=== PATIENT | male | born 1945 | race Caucasian/White ===

== ENCOUNTER 2020-12-19 12:06 | Outpatient (RCR) | payer MEDICARE, SELFPAY ==
[2020-12-14 08:48] VITALS: BMI 28.5
== END 2020-12-19 23:59 ==
LOC: IMMUN 12:06
PROVIDERS: Visit Provider Family Medicine
DX: Z23 Encounter for immunization (principal)
CPT/HCPCS: 0011A; 0012A; 91301

== ENCOUNTER → 2020-12-27 06:46 | Outpatient (CLI) | payer MEDICARE, SELFPAY ==
[2020-12-14 08:48] VITALS: BMI 28.5
--- NOTE | 2020-12-27 09:03 | STRESSREP_ITS ---
Stress Test Report Exercise myocardial perfusion stress test. 75-year-old male with a history of coronary artery bypass surgery. Medications amlodipine, baby aspirin, rosuvastatin, isosorbide, lisinopril, metoprolol. Stress protocol: Resting EKG demonstrates normal sinus rhythm with a rate of 57 bpm normal intervals are noted. Resting blood pressure is 120/70 mmHg. The patient exercised according to the regular Jitendra protocol for a total duration of 10 minutes and 30 seconds. Patient completed 1 minute and 30 seconds into stage IV of the Jitendra protocol. The maximum heart rate attained was 1 and 36 bpm which was 95% of max impacted heart rate the maximum workload was 12.5 metabolic equivalents. At rest there were no ST or T wave changes noted to suggest ischemia at peak exercise there was upsloping ST changes only noted which did not meet the criteria for ischemia. No clinical angina noted. Occasional premature ventricular complexes noted. The peak blood pressure was 178/68 mmHg. The test was terminated due to the target heart rate being achieved. The patient did experience throat discomfort at peak exercise which subsided on disc ontinuation of the exercise. Myocardial perfusion protocol. 12.0 mCi of technetium 99m sestamibi was injected at rest. The patient exercised according to regular Jitendra protocol for 10-1/2 minutes and at peak exercise 35.0 mCi of technetium 99m sestamibi was injected stress images were obtained stress and rest images were reconstructed and compared in the short axis vertical long horizontal long axis. Gated images were also obtained Perfusion SPECT analysis: Review of the stress images demonstrate normal uptake of tracer in all areas of the myocardium the resting images similar demonstrate normal uptake of tracer noted in all areas of the myocardium. No obvious areas of reversibility are noted suggest ischemia. No previous infarct is noted. Gated SPECT analysis: The gated ejection fraction is noted to be 61%. Conclusion: Exercise myocardial perfusion stress test with no imaging evidence of ischemia. No EKG criteria for ischemia noted. Throat discomfort noted with exercise which could be an anginal equivalent. This is noted at a high metabolic workload.
== END ==
PROVIDERS: Referring Provider Internal Medicine Cardiovascular Disease; Visit Provider Internal Medicine Cardiovascular Disease
DX: I20.8 Other forms of angina pectoris (principal)
CPT/HCPCS: 78452; 93017; 93306; A9500; Q9957; A4216; C8929

== ENCOUNTER 2021-01-23 06:47 | Day surgery (SDC) | payer MEDICARE, SELFPAY ==
[2020-12-14 08:48] VITALS: BMI 28.5
--- NOTE | 2021-01-18 10:55 | RAD_ITS ---
INDICATION: chest pain EXAMINATION/TECHNIQUE: X-RAY - XR Chest 2 Views COMPARISON: None. FINDINGS: Median sternotomy wires and mediastinal clips present. Chronic lung changes. No acute findings. Tortuous and calcified thoracic aorta. The heart is not enlarged. No pleural effusion or pneumothorax. Senescent changes of the bones. RAD/Chest PA and Lateral IMPRESSION: No acute radiographic abnormalities. Chronic lung changes. Electronically Signed: Asher Koenig MD at 19:26 EDT Tel , Service support ,
[2021-01-18 11:35] LABS: Absolute Lymphocyte Count 1.02 X10^3/uL (0.83-4.51); Absolute Neutrophil Count 2.4 X10^3/uL (2.0-7.7); Basophil# 0.06 X10^3/uL; Basophil% 1.3 % (0-1); Eosinophil# 0.36 X10^3/uL; Eosinophils% 7.9 % (0-5); Hematocrit 46.4 % (40-54); Hemoglobin 15.9 g/dL (13.0-16.5); Lymphocyte # 1.02 X10^3/ul (4.0); Lymphocyte % 22.3 % (19-41); Mean Corp Hgb Conc 34.3 g/dL (32-36); Mean Corpuscular Hgb 32.9 pg (27.0-32.0); Mean Corpuscular Volume 95.9 fL (80-94); Monocyte# 0.76 X10^3/uL; Monocyte% 16.6 % (0-10); NRBC Flagged by Analyzer 0 % (0-5); Neutrophil # 2.36 X10^3/uL (2.7-7.7); Neutrophil % 51.5 % (47-70); Platelet Count 152 K/mm3 (150-450); RBC Distribution Width CV 12.2 % (11.6-14.6); RBC Distribution Width SD 42.9 fl (35.1-43.9); Red Blood Count 4.84 M/mm3 (4.6-6.2); White Blood Count 4.6 K/mm3 (4.4-11.0)
[2021-01-18 12:23] LABS: Anion Gap 6 (5-15); BUN 16 mg/dL (7-18); BUN/Creat Ratio 16.9 RATIO (10-20); Calcium,Total 8.9 mg/dL (8.5-10.1); Chloride 105 mmol/L (98-107); Creatinine, Serum 0.95 mg/dL (0.70-1.30); EST Glomerular Filtration Rate 82 mL/min (>60); Est Glom Filt Rate - Afr Amer 99 mL/min (>60); Glucose 92 mg/dL (74-106); Sodium Level 140 mmol/L (136-145)
[2021-01-22 07:43] VITALS: BMI 28.5
--- NOTE | 2021-01-23 08:38 | HP.PCM_ITS ---
Problem List (1) Exertional angina Status: Acute (2) Atherosclerotic heart disease of [place] coronary artery without angina pectoris Status: Chronic (3) H/O coronary artery bypass surgery Status: Resolved Comment: CABG x 3 ACUNA-LAD, Free YOGI-LCx, SVG-D1 09/23/2000 (4) Essential (primary) hypertension Status: Chronic (5) Hyperlipidemia Status: Chronic Qualifiers: History and Physical Date of Admission: 01/23/21 History of Present Illness This is a 75-year-old gentleman who presents here today for a diagnostic heart catheterization. He has a history of coronary artery disease with bypass surgery in 1999. He had an ACUNA to the diagonal, SVG to the obtuse marginal, right internal mammary to the diagonal. Heart catheterization in 2007 had demonstrated patency of all vessels. He was in our office in November and had noted increased chest discomfort that was worse with exertion over the last month. He underwent a stress test which was negative for ischemia however patient had throat discomfort during exercise and this was of concern for an anginal equivalent. Allergies atorvastatin [From Lipitor] Adverse Reaction (Intermediate, Verified 12/14/20 08:49) Myalgias PFSH Medical History Atherosclerotic heart disease of [place] coronary artery without angina pectoris (Chronic) Essential (primary) hypertension (Chronic) Hyperlipidemia (Chronic) GERD (gastroesophageal reflux disease) (Chronic) Surgical History H/O coronary artery bypass surgery (Resolved 09/23/00) History of left heart catheterization (Chronic 11/19/07) Family History Father , Age 87 CAD (coronary artery disease) Hx of CABG Mother , Unknown cause No problems noted. Social History Smoking Status: Former smoker ROS Const Const: Negative for fatigue, weakness, headache(s), frequent falls, difficulty sleeping or excessive sweating Eyes Eyes: Negative for loss of peripheral vision, transient loss of vision, blurry vision, double vision or tunnel vision ENT ENT: Negative for headache(s), dizziness, Nosebleed/epistaxis or balance problems Cardio Chest Pain: Yes (Throat discomfort much better with imdur. New left chest pain) Frequency: monthly Character: tightness Onset: exercise Location: left chest Duration: minutes, hours Palpitations: No Edema: None Muscle aches with walking: None Resp Respiratory: Negative for SOB with activity, SOB at rest, SOB orthopnea\SOB lying down, Cough or paroxysmal nocturnal dyspnea GI GI: Negative nausea, vomiting, heartburn or black,tarry stools : Negative for hematuria Musc Musc: Negative for muscle aches/ myalgia, muscle weakness, joint pain or balance problems Skin Skin: Negative non-healing lesions, rash or unusual bruising Neuro Neuro: Negative for dizziness, lightheadedness, near syncope, syncope, orthostatic symptoms, frequent falls, headache(s), weakness, blurry vision, double vision or lack of coordination Ayden Hematologic/Lymphatic: Negative for easy bleeding or easy bruising Endo Endo: Negative for fatigue, excessive sweating or increased thirst/drinking Psych Psych: Negative for anxiety or depression Allergy Allergy/Immunology: Negative for hives, Negative for rash Cardiology Exam Const Appearance: cooperative, healthy appearing, no acute distress, well developed and well groomed Nutritional Appearance: average body habitus and well nourished Orientation: alert, awake and oriented x3 Head Head: normal to inspection, normocephalic and atraumatic Ears: hearing grossly normal bilaterally and external ears normal Nose: external nose normal, nares normal, nasal mucous membranes and turbinates normal, septum normal, no nasal discharge Face and Sinus: face symmetric Mouth: oral mucosae normal, tongue normal, oropharynx normal and moist mucous membranes Teeth and gingiva: dentition normal Throat: posterior oropharynx normal, tonsils normal and uvula midline Eyes General: appearance normal, both eyes and all related structures Eyelids: eyelids normal Conjunctivae: conjunctivae normal Pupils: PERRL, normal by confrontation and accommodation normal EOM: EOM intact bilaterally Neck Neck: normal visual inspection, trachea midline and no JVD JVD: +5 Carotids: normal carotid upstroke and bounding pulses Chest Chest inspection: normal inspection of the chest, symmetric chest movement and normal respiratory effort Auscultation: Bilateral: Clear to Auscultation Cardio Palpation: normal PMI Rate: regular rate Rhythm: regular rhythm Heart sounds: S1 normal, S2 normal and normal, physiologic split S2; negative rub, gallop or murmur GI GI: normal to inspection, soft, no hepatosplenomegaly and bowel sounds present Neuro General: alert, awake, oriented x3, gait normal, moves all extremities and no focal sensory deficit Skin Skin: no rashes or lesions noted Extremities Pulses: Normal: Right Femoral Pulse, Left Femoral Pulse, Right Dorsalis Pedis Pulse, Left Dorsalis Pedis Pulse, Right Posterior Tibial Pulse, Left Posterior Tibial Pulse, Right Radial Pulse, Left Radial Pulse Lower Extremity Edema: None: Bilateral Musculoskel Musculoskeletal: No joint tenderness Psych Psychological: normal affect Assessment & Plan Problems 1. Exertional angina I20.8 2. Coronary artery disease I25.10 3. Pure hypercholesterolemia E78.00 4. Essential hypertension I10 Plan - Chani CRISTINA, PA Patient will undergo a diagnostic heart catheterization today. Follow-up will be based upon these findings. Procedure Criteria Procedure Type: Elective COVID Risk Discussion: The surgeon/proceduralist and patient have discussed in detail the risk of expos ure to and/or potential harm posed by the COVID-19 virus with having a surgery/procedure at this time versus the risk of delaying the surgery/procedure. It is not possible to know either the risk of delaying the surgery or procedure or chance of getting an infection with perfect accuracy, but a joint decision was made between the patient and the surgeon/proceduralist to proceed at this time with the scheduled surgery/procedure as indicated on the consent form.
--- NOTE | 2021-01-23 13:17 | CL.D_ITS ---
Patient Name: GORDO LORA Study Date: 01/23/2021 Performing: Kushal Rogers MD Ht: 70 inches 178 cm : 1945 Wt: 198.7 lbs 90 kg Age: 75 Gender: male BSA: 2.08 PROCEDURE(S) PERFORMED US98-YNI/COR/CABG DC11-AO ROOT ANGIO WITH HEART CATH CLINICAL PROFILE AND INDICATIONS Indications: Worsening Angina Heart Failure: None Stress/Imaging Stress/Image Study Performed: No CAD Presentations: Unstable angina. CONCLUSIONS Severe CAD of lower [place] vessels with occlusion. ACUNA to LAD is patent. Yogi to Lcx is patent. SVG to ladonna gonal is occluded. RECOMMENDATIONS Medical therapy DESCRIPTION OF PROCEDURE The patient arrived to the procedure lab. The risks and benefits of the procedure as well as a full d escription of our services here and current unavailability of surgical backup were fully explained to the patient and/or their significant other prior to the catheterization. The Timeout was completed, verifying the correct patient and procedure. The patient's procedural site was prepped and draped in the usual fashion. Local anesthetic was given subcutaneously to right groin region with Lidocaine 2%. Using a modified Seldinger technique, arterial access was obtained via the right femoral artery, a 5 Fr sheath was inserted. Left Coronary Artery selective angiography was performed in multiple views u sing a 5 Fr. JL4 catheter. Left Coronary Artery selective angiography was performed in multiple views using a 5 Fr. JL 5 catheter. Right Coronary Artery selective angiography was then performed in multi ple views using a 5 Fr. 3DRC (Ayad) catheter. Free YOGI to DIAG 1 selective angiography was performed in multiple views using a 5 Fr. 3DRC (Ayad) catheter. Left internal tori rk artery graft to the LAD selective angiography was performed in multiple views using a 5 Fr. 3DRC (Ayad) catheter. Free YOGI graft to the DIAG 1 selective angiography was performed in multiple v iews using a 5 Fr. JR 5 catheter. Ascending (root) aorta selective angiography was then performed in single view. Ascending (root) aorta selective angiography was then performed in single view. Right lo wer extremity selective angiography was then performed in single view.The arterial sheath was pulled and a Mynx closure device was deployed for hemostasis CORONARY ANGIOGRAPHY DOMINANCE: Left Dominant LEFT HEART ASSESSMENT Left Ventricular Ejection Fraction: by Echo 60 % Normal LV wall motion Normal Left Ventricular systolic function LEFT MAIN: Moderate calcification, Mild luminal irregularities LEFT ANTERIOR DESCENDING ARTERY: MID LAD: is occluded DISTAL LAD: Mild luminal irregularities less than 30% CIRCUMFLEX ARTERY: Diffusely diseased up to 70 % RIGHT CORONARY ARTERY: PROX RCA: is occluded GRAFTS: ACUNA graft to the Mid LAD is patent YOGI graft to the Acute Marginal is patent Saphenous Vein graft to the 1st Diagonal is totally occluded COMPLICATIONS No Complications PROCEDURE MEDICATIONS Versed 1 mg IV Fentanyl 50 mcg IV Versed 1 mg IV Oxygen: 2 L/min via nasal cannula Baby Aspirin (81mg) 1 Tabs PO @ 01/23/2021 07:08:38 SUMMARY OF HEMODYNAMIC DATA Time AIR REST ECG 07:06:24 AO 121/56 (80) SA 07:45:58 Signed By Kushal Rogers MD On 01/23/2021 13:16:02 Kushal Rogers MD
== END 2021-01-23 11:20 | disposition home or self-care (01) ==
LOC: CLSP 06:48
PROVIDERS: Referring Provider Internal Medicine Cardiovascular Disease; Visit Provider Internal Medicine Cardiovascular Disease
DX: I25.110 Atherosclerotic heart disease of native coronary artery with unstable angina pectoris (principal); I10 Essential (primary) hypertension; E78.00 Pure hypercholesterolemia, unspecified; K21.9 Gastro-esophageal reflux disease without esophagitis; Z95.1 Presence of aortocoronary bypass graft; Z79.899 Other long term (current) drug therapy; Z87.891 Personal history of nicotine dependence
CPT/HCPCS: 93459; 36415; 71046; 80048; 85025; 93455; 93567; 99152; 99153; C1760; J7040; Q9967; C1769

== ENCOUNTER → 2022-05-06 | Outpatient (CLI) | payer MEDICARE, SELFPAY ==
--- NOTE | 2022-05-06 16:32 | MRI_ITS ---
STUDY: MRI BRAIN WITHOUT CONTRAST REASON FOR EXAM: Male, 76 years old. DIPLOPIA;PARTIAL LEFT CN PALSY.ATTENTION ORBITS. NO PREVIOUS IMAGING TECHNIQUE: Standardized multiplanar fat and water weighted pulse sequences were obtained. COMPARISON: None. FINDINGS: Normal midline developmental anatomy. No Chiari malformation. Unremarkable sella. Cerebellar pontine angles are clear. No evidence of intracranial space occupying mass or mass effect. No restricted diffusion. No evidence of prior hemorrhage. Mild global cerebral volume loss compatible with age. Mild periventricular and subcortical T2 hyperintense chronic small vessel white matter ischemic change. Focal encephalomalacia in the medial left occipital lobe compatible with prior infarct, sagittal T1 image 14 and axial T2 image 12 with surrounding gliosis. Vascular flow voids are preserved. Globes are intact. Normal anterior chamber. Normal lens positioning. Normal rectus musculature. Symmetric unremarkable optic nerves. No retrobulbar edema. Mild left frontal and bilateral anterior ethmoid sinus mucoperiosteal thickening. Mastoid air cells are clear. 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 No evidence of acute stroke or acute intraorbital finding. Mild senescent changes compatible with age. Mild sinus disease. Electronically Signed: Xander Chowdhury MD at 6:02 EDT ,
== END | disposition home or self-care (01) ==
PROVIDERS: Referring Provider Ophthalmology; Visit Provider Ophthalmology
DX: H53.2 Diplopia (principal); H49.22 Sixth [abducent] nerve palsy, left eye
CPT/HCPCS: 70551

== ENCOUNTER → 2022-05-15 | Outpatient (CLI) | payer MEDICARE, SELFPAY ==
[2022-05-15 12:32] LABS: Erythrocyte Sedimentation Rate 8 mm/hr (0-20)
[2022-05-15 12:35] LABS: Absolute Lymphocyte Count 0.91 X10^3/uL (0.83-4.51); Absolute Neutrophil Count 3.5 X10^3/uL (2.0-7.7); Basophil# 0.06 X10^3/uL; Basophil% 1.1 % (0-1); Eosinophils% 3.6 % (0-5); Hematocrit 46.2 % (40-54); Hemoglobin 15.3 g/dL (13.0-16.5); Lymphocyte # 0.91 X10^3/ul (0.83-4.51); Lymphocyte % 16.6 % (19-41); Mean Corp Hgb Conc 33.1 g/dL (32-36); Mean Corpuscular Hgb 31.7 pg (27.0-32.0); Mean Corpuscular Volume 95.9 fL (80-94); Mean Platelet Vol. 10.1 fl (6.2-12.0); Monocyte# 0.76 X10^3/uL; Monocyte% 13.8 % (0-10); NRBC Flagged by Analyzer 0 % (0-5); Neutrophil # 3.54 X10^3/uL (2.7-7.7); Neutrophil % 64.5 % (47-70); Platelet Count 162 K/mm3 (150-450); RBC Distribution Width CV 12.2 % (11.6-14.6); RBC Distribution Width SD 43.6 fl (35.1-43.9); Red Blood Count 4.82 M/mm3 (4.6-6.2); White Blood Count 5.5 K/mm3 (4.4-11.0)
[2022-05-15 13:01] LABS: CRP < 2.90 mg/L (0.0-3.0)
== END | disposition home or self-care (01) ==
PROVIDERS: Visit Provider Ophthalmology
DX: H53.2 Diplopia (principal); H49.22 Sixth [abducent] nerve palsy, left eye
CPT/HCPCS: 36415; 85025; 85652; 86140